=== PATIENT | male | born 1970 | race Caucasian/White ===

== ENCOUNTER 2016-10-13 19:49 | Inpatient (IN) ==
[~2016-10-13 19:49] MED LIST: ENOXAPARIN 40 MG/0.4 ML SYRINGE SUBCUT SCH
[2016-10-13] MEDS ORDERED: ONDANSETRON 4 MG/2 ML VIAL IV STA (20:20)
[2016-10-13] MEDS ORDERED: ASPIRIN 325 MG TABLET PO STA (20:20)
[2016-10-13] MEDS ORDERED: PANTOPRAZOLE 40 MG VIAL IV STA (20:20)
--- NOTE | 2016-10-13 20:27 | Emergency Department Note ---
Arrival - Arrival Chief Complaint: Chest Pain Stated Complaint: Chest pain ED Nursing Triage Note: Patient complains of chest pain and nausea that began about two hours ago. Hx of HTN, schizophrenia, and hypothyroidism. Mode of Arrival: Ambulatory Limitations: No Limitations Source: Patient Time Seen by Provider: 10/13/16 20:20 - History of Present Illness HPI Narrative: This 46-year-old white male presents with a history of 2 hours of central chest pain that is mechanical in nature which he states is associated with shortness of breath, nausea, and vomiting. Notable, however, the nausea, vomiting, and shortness of breath were all 14 hours ago when he awoke this morning. The patient currently appears stable other than the central area discomfort. He denies heartburn, belching, water brash, peptic ulcer disease, pancreatitis or colitis. The patient does have hypothyroidism and has not had his medication for some time. Currently he appears in stable condition. Onset (ago): hour(s) (Patient presents 2 hours post onset of symptom) Allergies/Adverse Reactions: Allergies Allergy/AdvReac Type Severity Reaction Status Date / Time No Known Allergies Allergy Verified 07/19/14 10:26 Home Medications: Home Medications Medication Instructions Recorded Confirmed Type No Known Home Medications [No 10/13/16 10/13/16 History Known Home Medications] Review of System - Review of System 12 point system: reviewed and no additional remarkable complaints except as stated - Review of System Constitutional: Present: as per HPI Respiratory: Present: as per HPI Cardiovascular: Present: as per HPI Gastrointestinal: Present: as per HPI Medical,Surgical,& Family Hx - Medical History Cardio: History of: Hypertension Psychological: History of: Schizophrenia, Psychiatric Problems Endocrine: History of: Thyroid Disorder - Social History Smoking Status: Current every day smoker Frequency of Alcohol Use: None Type of Drug Use: None Exam Vital Signs: Vital Signs Temperature 98.4 F 10/13/16 20:58 Pulse Rate 81 10/13/16 20:58 Respiratory Rate 16 10/13/16 20:58 Blood Pressure 160/114 10/13/16 20:58 GENERAL: Well developed, well nourished elderly white male in no acute distress. HEENT: Normocephalic. No trauma. Moist mucous membranes. EOMI. PERRLA. ENT NML meth mouth NECK: Supple. No adenopathy. CARDIAC: Regular. No murmurs. Heart rate 89 CHEST: Clear to auscultation. No respiratory distress. O2 sat 98%. Exquisitely tender right left costosternal junctions ABDOMEN: Soft. Tender mid epigastrium. Active bowel sounds. EXTREMITIES: No trauma. Normal ROM. No pedal edema. SKIN: No diaphoresis. No rash. NEURO: Alert. Neuro intact. no focal deficits. Course - Reevaluation(s) Reevaluation #1: Discussed with patient family the need for hospitalization given his diffuse metabolic abnormalities. - Consultations Consultation #1: Discussed with the hospitalist service who will admit for further evaluation and treatment Results - Labs CBC & BMP: 10/13/16 20:21 10/13/16 20:43 Labs: I have reviewed the laboratory noted the absence of thyroid hormone as well as the active rhabdomyolysis. I have likewise noted the normal cardiac's. - Impressions EKG: Sinus rhythm at 98 with normal MD interval and QRS duration. Diffuse ST flattening.. No acute injury pattern noted. - Diagnostic Findings Procedure: Chest x-ray: image reviewed by me, report reviewed by me (No acute disease) Disposition Clinical Impression: Rhabdomyolysis, Hypothyroidism, Hyponatremia Case discussed with: patient, patient's family Condition: Guarded Time of Disposition: 22:07
[2016-10-13 20:29] LABS: Basophils # 0.1 10*3/uL (0.0-0.2); Basophils % 0.6 % (0.0-0.8); Hematocrit 38.3 VOL% (42.0-52.0); Immature Granulocytes % 1.7 %; Immature Granulocytes Absolute 0.14 #; Lymphocytes # 2.9 10*3/uL (1.4-4.0); Mean Corpuscular HGB Conc 36.6 GM/DL (32-36); Mean Corpuscular Hemoglobin 33 PG (27-34); Mean Corpuscular Volume 90.1 FL (87-102); Mean Platelet Volume 8.6 FL (9.6-12.0); Monocytes # 0.6 10*3/uL (0.11-0.8); Monocytes % 7.6 % (1.7-12.7); Neutrophils # 4.6 10*3/uL (1.4-7.4); Neutrophils % 55.1 % (38.7-73.9); Platelet Count 334 T/CUMM (130-400); Red Blood Count 4.25 MC/CUMM (3.8-5.5); Red Cell Distribution Width 13.2 % (9.3-17.3); White Blood Count 8.3 T/CUMM (4-12)
[2016-10-13 20:38] LABS: PT Patient Result 11.1 SECS; Partial Thromboplastin Time 35.7 SECS (0-40)
[2016-10-13] MEDS ORDERED: ASPIRIN 325 MG TABLET ONE (20:38)
[2016-10-13] MEDS ORDERED: ONDANSETRON 4 MG/2 ML VIAL ONE (20:38)
[2016-10-13] MEDS ORDERED: PANTOPRAZOLE 40 MG VIAL IV ONE (20:38)
[2016-10-13] MEDS ORDERED: MECLIZINE 25 MG TABLET PO STA (20:45)
[2016-10-13] MEDS ORDERED: MECLIZINE 25 MG TABLET ONE (20:50)
[2016-10-13 20:59] LABS: Albumin 3.7 G/DL (3.4-5.0); Bilirubin,Total 0.7 MG/DL (0.2-1.0); Calcium 8.2 MG/DL (8.5-10.1); Osmolality,Calculated 253.2 MOS/KG (273-304); Potassium 3.7 MMOL/L (3.5-5.1); Total Protein 7.4 G/DL (6.4-8.3)
--- NOTE | 2016-10-13 21:02 | XRay Report ---
XR chest 1V Indication: Chest pain. Chest one view: Right calcified eccentric as described. Image. Compared to 06/06/2016, mild cardiomegaly is now present. Continued interstitial prominence of the lungs noted diffusely without focal infiltrate. Lungs are somewhat hypoinflated. Prior neck surgery again shown. Impression: Mild cardiomegaly now present with worsening pulmonary hypoinflation and vascular crowding. PROCEDURE INTERPRETED AT [facility] DEPARTMENT OF RADIOLOGY Final Report Signed by: Stanley Oneill M.D.
[2016-10-13 21:11] LABS: Amylase 34 U/L (25-115); CKMB % 1.1 %; Free T4 (Free Thyroxine) < 0.20 NG/DL (0.76-1.46); Troponin I Only < 0.015 NG/ML (0.00-0.045)
[2016-10-13 22:22] LABS: Apearance,Urine CLEAR (Clear); Bilirubin,Urine Negative (Negative); Blood, Urine Negative (Negative); Glucose,Urine (UA) Negative (Negative); Ketones,Urine Negative (Negative); Nitrite,Urine Negative (Negative); Protein,Urine Negative; RBC,Urine <1 /HPF (0-4); Urine Color Straw (Yellow); Urine Specific Gravity 1.003 (1.001-1.035); WBC,Urine <1 /HPF (0-6)
[2016-10-13 22:28] LABS: Barbiturates Screen,Urine Negative (Negative); Benzodiazepines Screen,Urine Negative (Negative); Cannabinoid Screen,Urine Negative (Negative); Opiate Screen,Urine Negative (Negative); Phencyclidine Screen,Urine Negative (Negative)
[2016-10-13] MEDS ORDERED: ACETAMINOPHEN 325 MG TABLET PO PRN (22:29)
[2016-10-13] MEDS ORDERED: DOCUSATE SODIUM 100 MG CAPSULE PO PRN (22:29)
[2016-10-13] MEDS ORDERED: ONDANSETRON 4 MG/2 ML VIAL IV PRN (22:29)
--- NOTE | 2016-10-13 23:14 | Hospitalist History & Physical ---
Assessment and Plan - Time spent with patient Time spent with patient: Greater than 30 minutes (1) Hypothyroidism Problem details: Acute on chronic Status: Acute Assessment and plan: Admit to hospitalist services. 2/2 Thyroidectomy TSH - 49.6; T4 - <0.20 Continue home dose of Synthroid 150 mcg; first dose now; continue daily. Current Visit: Yes (2) Hyponatremia Status: Acute Assessment and plan: Serum Na: 127 IV NS at 100 ml/hr. Check urine Na, urine creatinine, and urine osmolality. Recheck BMP in AM. Current Visit: Yes (3) Schizophrenia Status: Chronic Assessment and plan: Patient reports taking risperdol but is unsure of dosage. He states he went to his doctor but could not be seen related to some issue with his Medicaid/Medicare card. 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 Current Visit: Yes (4) DVT prophylaxis Status: Acute Assessment and plan: Lovenox 40 mg SQ daily. Current Visit: Yes History of Present Illness Chief complaint: Hypothyroidism History of present illness: Mr. Crawford is a 46 year old male with a history of hypothyroidism s/p thyroidectomy and schizophrenia. He denies the diagnosis of schizophrenia, but his sister states that he has an undifferentiated diagnosis of schizophrenia. Mr. Crawford presented to the ED of [facility] this evening for a refill of his synthroid. Upon evaluation in the ED, Mr. Crawford was found to have a TSH of 49.6 and a T4 level of <0.20. He reports that he takes synthroid 150 mcg daily but hasn't had it in about a month and a half. His sister states it's been more like 6 months since he took his medications. He also reports taking risperdol and Klonopin or clonidine (they were unsure which) but is unsure of the dose. Hospitalist services were consulted for further evaluation and treatment, and the patient will be admitted to the medical-surgical unit. Home Medications Medication Instructions Recorded Confirmed Type No Known Home Medications [No 10/13/16 10/13/16 History Known Home Medications] Allergies Allergy/AdvReac Type Severity Reaction Status Date / Time No Known Allergies Allergy Verified 07/19/14 10:26 Medical,Surgical,& Family Hx - Medical History Cardio: History of: Hypertension Psychological: History of: Schizophrenia, Psychiatric Problems Neurology: No history of: Cerebrovascular Accident, Seizures HEENT: No history of: Ear Problem, Eye Problem Endocrine: History of: Thyroid Disorder No history of: Diabetes Mellitus (NIDDM) Respiratory: No history of: Asthma, COPD Genitourinary: No history of: Problems Gastrointestinal: No history of: GI Problems Musculoskeletal: No history of: Musculoskeletal Problems - Social History Smoking Status: Current every day smoker Frequency of Alcohol Use: None Type of Drug Use: None 12 point system: reviewed and no additional remarkable complaints except as stated - Constitutional Constitutional: Present: lethargy. Absent: chills, fever(s), headache(s), weakness - EENT Eyes: Absent: blurry vision, diplopia, loss of vision Ears: Absent: decreased hearing, ear discharge, ear pain Nose, mouth and throat: Absent: dysphagia, nasal congestion, sore throat - Cardiovascular Cardiovascular: Absent: chest pain at rest, dyspnea - Respiratory Respiratory: Absent: cough, dyspnea, wheezing - Gastrointestinal Gastrointestinal: Absent: abdominal pain, constipation, diarrhea, nausea, vomiting - Genitourinary Genitourinary: Absent: dysuria, flank pain - Musculoskeletal Musculoskeletal: Absent: arthralgias, joint swelling, muscle weakness, myalgias - Neurological Neurological: Absent: abnormal gait, abnormal speech, numbness, paresthesias - Psychiatric Psychiatric: Absent: anxiety, auditory hallucinations, depression, homicidal ideation, suicidal ideation, visual hallucinations - Endocrine Endocrine: Present: cold intolerance. Absent: polydipsia, polyphagia, polyuria - Hematologic/Lymphatic Hematologic/Lymphatic: Absent: easy bleeding, easy bruising Exam - Constitutional Vitals: Period Temp Pulse Resp BP Sys/Mcneil Pulse Ox Last 24 Hr 98.4 F 81 16 160/114 Exam: Constitutional System: Afebrile. Awake, alert and oriented x 3. No distress. No tremulousness. Head: Normocephalic, atraumatic. Ears, Nose and Throat System: No pain or tenderness. No epistaxis or discharge Eyes System: Pupils equal, round, and reactive. Extraocular muscles intact. Neck: Supple, without adenopathy, No jugular venous distention. Surgical scar from thyroidectomy noted. Respiratory System: Chest clear to auscultation. Cardiovascular System: Heart with regular rate and rhythm. No murmur. GI System: Abdomen soft, Mild tenderness of RUQ and epigastric regions. Normo active bowel sounds present. Musculoskeletal System: Limbs with no pedal edema. Full distal pulses. Normal capillary refill. Neurological System: No discernable sensory deficit. No aphasia Psychiatric System: Conversation is rational Results - Labs CBC & BMP: 10/13/16 20:21 10/13/16 20:43 Lab Results: I have reviewed the past 24 hour labs
[2016-10-13] MEDS ORDERED: ALUM/MAG/SIMETH/LIDO VISC 1:1 30 ML BOTTLE PO ONE ×2 (23:55→23:56)
[2016-10-14] MEDS: amLODIPine 5 MG TABLET PO SCH ×2 (00:05→08:59)
[2016-10-14] MEDS: SODIUM CHLORIDE 0.9% 1,000 ML IV SCH ×2 (01:37→11:01)
--- NOTE | 2016-10-14 05:58 | EKG Report ---
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
[2016-10-14] MEDS ORDERED: LEVOTHYROXINE 150 MCG TABLET PO SCH (07:00)
[2016-10-14 07:48] LABS: Calcium 8.7 MG/DL (8.5-10.1); Osmolality,Calculated 261.4 MOS/KG (273-304)
--- NOTE | 2016-10-14 08:24 | Ultrasound Report ---
History is right upper quadrant pain and tenderness The gallbladder is been removed No biliary ductal dilatation seen Hepatic size and echotexture is normal The visualized pancreas and proximal IVC and aorta are normal in size No right renal hydronephrosis seen Impression: Prior cholecystectomy. No acute pathology seen PROCEDURE INTERPRETED AT [facility] DEPARTMENT OF RADIOLOGY Final Report Signed by: Dr. Desire Rosen
[2016-10-14] MEDS: LEVOTHYROXINE 150 MCG TABLET PO SCH (08:59)
[2016-10-14] MEDS ORDERED: PANTOPRAZOLE 40 MG TABLET PO SCH (09:00)
--- NOTE | 2016-10-14 11:09 | CT Report ---
History his confusion Motion artifact limits several of the images. The ventricles are normal in size No acute intracranial hemorrhage or mass effects seen No acute stroke identified Impression: No acute intracranial pathology seen The CT exam was performed using one or more of the following dose reduction techniques: Automated exposure control, adjustment of the mA and/or kV according to patient size, or use of iterative reconstruction technique. PROCEDURE INTERPRETED AT [facility] DEPARTMENT OF RADIOLOGY Final Report Signed by: Dr. Desire Rosen
--- NOTE | 2016-10-14 13:11 | Hospitalist Progress Note ---
Assessment and Plan (1) Hypothyroidism Problem details: Acute on chronic Status: Acute Assessment and plan: severe due to non compliant. Continue with supplements. Current Visit: Yes (2) HTN (hypertension) Status: Acute Assessment and plan: continue with meds. Current Visit: Yes (3) Hyponatremia Status: Acute Assessment and plan: due to hypothyroidism. Improving slowly, bmp in am Current Visit: Yes (4) Schizophrenia Status: Chronic Assessment and plan: For outpatient follow-up. Current Visit: Yes Hospitalist: Subjective Interval history: Patient seen. He feels better and less confused. Exam - Constitutional Vitals: Period Temp Pulse Resp BP Sys/Mnceil Pulse Ox Last 24 Hr 97.5 F-98.4 F 76-86 15-20 121-160/80-115 96-98 General appearance: no acute distress - Head Head exam: Present: normal inspection - Respiratory Respiratory exam: Present: clear to auscultation bilaterally - Cardiovascular Cardiovascular exam: Present: regular rate and rhythm - GI/Abdominal GI/Abdominal exam: Present: normal bowel sounds - Extremities Exam Extremities exam: Present: normal inspection - Neurological Exam Neurological exam: Present: alert, oriented X3 Results - Labs CBC & BMP: 10/13/16 20:21 10/14/16 06:47 Lab Results: I have reviewed the past 24 hour labs Quality Measures - Stroke Symptom Onset Unknown: No
[2016-10-14] MEDS ORDERED: ZALEPLON 5 MG CAPSULE PO PRN (22:58)
[2016-10-15] MEDS: SODIUM CHLORIDE 0.9% 1,000 ML IV SCH (03:32)
[2016-10-15 04:11] VITALS: BP 140/88
[2016-10-15 06:23] LABS: Calcium 8.3 MG/DL (8.5-10.1); Osmolality,Calculated 262.4 MOS/KG (273-304); Potassium 3.9 MMOL/L (3.5-5.1)
[2016-10-15] MEDS: LEVOTHYROXINE 150 MCG TABLET PO SCH ×2 (06:27→06:35)
--- NOTE | 2016-10-15 10:27 | Discharge Summary ---
Hospital Course - Hospital Course Hospital Course: The patient left AGAINST MEDICAL ADVICE without being seen today. However his history includes schizophrenia and admitted for severe hypothyroidism. He came in confused and had supplementation with IV fluids and and nutritional supplements. The patient became agitated with nursing staff. This morning the patient left this morning without being seen by the doctor. - Time spent with patient Time with patient DS: Less than 30 minutes (15 minutes) Diagnosis - Discharge Diagnosis (1) HTN (hypertension) Status: Chronic (2) Hypothyroidism Status: Chronic (3) Schizophrenia Status: Chronic Specialty Discharge - Follow Up or Referrals Discharge Plan - Discharge Data Disposition: Left Against Medical Advice - Discharge Medications No Action No Known Home Medications [No Known Home Medications] - Follow Up or Referral - Forms/Instructions Instructions: Against Medical Advice (DC) Exam - Constitutional Vitals: Period Temp Pulse Resp BP Sys/Mcneil Pulse Ox Last 24 Hr 97.3 F-98 F 85-93 18-20 132-149/82-91 94-96 Exam not performed patient left without being seen. Discharge Results Labs on day of discharge: Labs from last 24 hours 10/15/16 05:08 Sodium 133 L Potassium 3.9 Chloride 98 Carbon Dioxide 27 Anion Gap 11.9 BUN 6 L Creatinine 1.20 GFR Calculation 84 BUN/Creatinine Ratio 5.00 L Glucose 72 L Calculated Osmolality 262.4 L Calcium 8.3 L DS: Provider Date of admission: 10/13/16 22:29 Primary care physician: . No PCP Attending physician on admission: Stanley Davis MD Consults: 10/14/16 07:45 Consult to Case Mgmt/Social Srvs [CONS] Routine Reason for Case Mgmt/Social Srvs: Discharge Planning Discharging clinician: Raúl Gutiérrez Jr., MD
== END 2016-10-15 08:50 | disposition left against medical advice (07) | DRG 644 ==
LOC: N.ED 19:49 → N.EDINP 22:29 → SUATTDRO 22:29 → N.5E 23:19
PROVIDERS: ADMIT Internal Medicine; ATTEND Internal Medicine Nephrology